=== PATIENT | male | born 1975 | race Caucasian/White ===

== ENCOUNTER 2020-11-30 13:01 | Outpatient (CLI) | payer OTHER, SELFPAY | END 2020-11-30 13:02 | disposition home or self-care (01) | LOC: ANHCOVIDVC 13:01 | PROVIDERS: PCP Family Medicine Adolescent Medicine | DX: Z23 Encounter for immunization (principal) | CPT/HCPCS: 0001A; 91300 ==

== ENCOUNTER 2020-12-21 13:02 | Outpatient (CLI) | payer OTHER, SELFPAY | END 2020-12-21 13:03 | disposition home or self-care (01) | LOC: ANHCOVIDVC 13:02 | PROVIDERS: PCP Family Medicine Adolescent Medicine | DX: Z23 Encounter for immunization (principal) | CPT/HCPCS: 0002A; 91300 ==

== ENCOUNTER 2021-03-25 12:01 | Emergency (ER) | payer SELFPAY ==
[2021-03-25] VITALS (10 sets, daily range): BP systolic 102–153; BP diastolic 73–105; PULSE 69–88; RESP 14–21; O2SAT 94–98
--- NOTE | ~2021-03-25 | CT_ITS ---
EXAMINATION: CTA brain carotid EXAM DATE: 03/25/2021 16:18 INDICATION: Left-sided paresthesia, hemiparesis. TECHNIQUE: Spiral CTA of the carotid arteries was performed with intravenous injection 100 cc of Om nipaque 350. Axial, coronal, sagittal reformatted images reviewed. Additional reformatted images cre ated on dedicated 3-D workstation. NASCET comparable standard used to assess the degree of arterial stenosis. Spiral CT angiogram cerebral arteries performed with the same intravenous injection of con trast. Source images of the brain CTA transferred to dedicated workstation for 3-D rotational image c reation. Coronal, sagittal maximum intensity pixel images also reviewed. The dose-length product (D LP) for this examination was 1222.40 mGy-cm. The exposure was tailored according to patient size, a nd iterative reconstruction (ASIR) was used as additional dose reduction technique. Correlation is ma de to noncontrast head CT. FINDINGS: There is no carotid bulb arterial sclerosis or stenosis. The vertebral arteries are codomin ant. Fenestrated basilar artery, congenital variant. There is no carotid or vertebral basilar arteri al dissection or fibromuscular dysplasia. There are no cerebral artery aneurysms. There is symmetric cerebral artery arborization. The sagittal, transverse and sigmoid sinuses enhance normally, no venou s sinus thrombosis. Internal cerebral veins also enhance normally. Incidental Findings: There is moderate amount of frothy appearing left maxillary sinus fluid, trace o n the right. Mild to moderate ethmoid and maxillary mucoperiosteal thickening. IMPRESSION: 1. No acute carotid or intracranial findings. 2. Bilateral carotid bulb 0% stenosis. 3. Sinus opacity. Reviewed, dictated and finalized at location B.
--- NOTE | ~2021-03-25 | CT_ITS ---
EXAMINATION: CT brain wo con DATE: 03/25/2021 13:24 INDICATION: Left-sided numbness, confusion and dizziness TECHNIQUE: Computed tomography (CT) of the head was performed without intravenous contrast. Sagittal and coronal reconstructions were performed. The mA was adjusted according to patient size. Iterative reconstruction technique was employed. The dose-length product was 605.33 mGy-cm. COMPARISON: head CT dated 10/29/14 FINDINGS: No acute intracranial hemorrhage, acute infarction or abnormal extra axial fluid collection. Ventricl es are normal and symmetric. No mass/mass effect. Moderate mucosal thickening throughout the bilatera l ethmoid and right maxillary and sphenoid sinuses and dependently layering mucus in the left maxilla ry sinus could be seen with acute sinusitis. The orbits and mastoid air cells are normal. IMPRESSION: 1. Normal brain. No acute intracranial process. 2. Sinus disease. Reviewed, dictated and finalized at location A.
--- NOTE | ~2021-03-25 | XR_ITS ---
EXAMINATION: XR chest 1V portable EXAM DATE: 03/25/2021 12:46 INDICATION: Left-sided weakness. TECHNIQUE: Portable AP frontal chest x-ray was obtained. Comparison is made to prior examination from 09/12/2007. FINDINGS: The lungs are clear. There are no pleural effusions. The cardiomediastinal silhouette is within normal limits. There is no pneumothorax suspected. The bones and soft tissues are unremarkab le. IMPRESSION: No acute cardiopulmonary findings. Reviewed, dictated and finalized at location B.
--- NOTE | ~2021-03-25 | MR_ITS ---
EXAMINATION: MR brain/brain stem wo/w con DATE: 03/26/2021 14:54 INDICATION: Left-sided numbness TECHNIQUE: Magnetic resonance imaging (MRI) of the brain and brainstem was performed without and with 20 mL Multihance intravenous contrast. Sequences included sagittal and axial T1-weighted SE, axial d iffusion-weighted FS SE, axial T2*-weighted GRE, axial T2-weighted FLAIR, and axial T2-weighted FSE. Postcontrast axial and coronal T1-weighted SE was obtained. Apparent diffusion coefficient (ADC) maps were created. COMPARISON: Head CT and CT angiogram dated 03/25/2021 FINDINGS: There are no areas of restricted diffusion to suggest acute infarction. No intracranial hemorrhage or abnormal intracranial mass lesion. There are no intraparenchymal signal abnormalities seen on the ot her pulse sequences. The ventricles are symmetric and normal in size. There are no abnormal extra-axi al fluid collections. Flow voids are seen in the cerebral arteries on the T2-weighted sequences consi stent with their expected patency. Mild to moderate mucosal thickening throughout the paranasal sinus es with dependently layering mucus in the left maxillary sinus and to lesser degree right sphenoid an d maxillary sinuses. Visualized orbits and soft tissues are unremarkable. There are no areas of abnor mal enhancement on the post contrast images. IMPRESSION: 1. Sinus disease. Otherwise normal brain MR . Reviewed, dictated and finalized at location A.
--- NOTE | 2021-03-25 12:07 | ECG_ITS ---
Measurements Intervals [place] Rate: 78 P: 0 MA: 162 QRS: 43 QRSD: 113 T: 30 QT: 340 QTc: 390 Interpretive Statements SINUS RHYTHM INTRAVENTRICULAR CONDUCTION DELAY BASELINE ARTIFACT- I, II, III, AVR, AVL, AVF, V2-V6 BORDERLINE ECG Electronically Signed On 03-25-2021 15:34:18 CDT by Jasson Worley D.O.
[2021-03-25 12:47] LABS: Glucose Point of Care 171 mg/dl (65-105)
[2021-03-25 12:48] LABS: Basophils Percent Auto 0.5 % (0.2-1.2); Eosinophils Absolute Auto 0.2 K/mm3 (0-0.3); Hemoglobin 17.7 g/dL (14.0-18.0); Immature Granulocyte Absolute 0.02 K/mm3 (0.00-0.031); Immature Granulocyte Percent A 0.3 % (0-0.5); Lymphocytes Absolute Auto 1.74 K/mm3 (0.9-3.2); Lymphocytes Percent Auto 22.1 % (18.3-44.2); Mean Corpuscular Hemoglobin 33.5 pg (26-34); Mean Corpuscular Volume 98.5 fl (80-100); Monocytes Absolute Auto 0.5 K/mm3 (0.1-0.6); Monocytes Percent Auto 5.7 % (2.6-8.5); Neutrophils Absolute Auto 5.5 K/mm3 (1.3-6.7); Neutrophils Percent Auto 69.4 % (45.5-73.1); Platelet Count Result 170 k/mm3 (150-375); Red Blood Count 5.28 M/mm3 (4.6-6.20); Red Cell Distribution Width 12.5 % (11.5-14.5); White Blood Count 7.9 K/mm3 (4.5-10.0)
[2021-03-25 12:57] LABS: Anion Gap 9 mmol/L (8-16); Blood Urea Nitrogen 16 mg/dL (9-20); Calcium 9.8 mg/dL (8.4-10.2); Carbon Dioxide 24 mmol/L (22-30); Chloride 105 mmol/L (98-107); Estimated CRCL calculation 104 ml/min; Estimated Glomerular Filt Rate > 60; Glucose 106 mg/dL (65-110); Potassium 4.4 mmol/L (3.4-5.0); Sodium 138 mmol/L (137-145)
--- NOTE | 2021-03-25 12:59 | ED.NEUROSD ---
HPI - Neuro Symptoms/Deficit General Chief Complaint: Neuro Symptoms/Deficit Stated Complaint: neuro symptoms started 3 days ago Time Seen by Provider: 03/25/21 12:09 History of Present Illness HPI Narrative: Patient is a 45-year-old male who presents ER with left-sided numbness and tingling. Located in the face/chest/arm/leg. Ongoing for 3 days and progressively worsening. Also feels like he has some weakness in the left face and also on his left arm and leg. He reports he is more clumsy due to the numbness in his hand. No falling or walking to one side. No history of CVA. Saw his PCP couple days ago and is scheduled for an outpatient MRI and symptom worsening. Patient reports that he also had some sharp chest pain on sternum that went into his left shoulder. It was very brief. No history of MO. Related Data Home Medications Medication Instructions Recorded Confirmed alprazolam 1 mg PO TID PRN 07/20/19 aspirin 81 mg PO DAILY 03/25/21 buspirone 10 mg PO BID 03/25/21 03/26/21 esomeprazole magnesium [Nexium 20 mg PO DAILY 03/25/21 24HR] trazodone 100 mg PO HS 03/26/21 Allergies Allergy/AdvReac Type Severity Reaction Status Date / Time No Known Allergies Allergy Mild Verified 03/25/21 12:13 Review of Systems Review of Systems: All systems reviewed & are unremarkable except as noted in HPI and below Constitutional: Constitutional: Denies chills, Denies fever(s) and Denies weakness Cardiovascular: Cardiovascular: Reports chest pain, Denies rapid heart rate and Reports radiating jaw, neck or arm pain Respiratory: Respiratory: Denies cough and Denies dyspnea Gastrointestinal: Gastrointestinal: Denies abdominal pain, Denies nausea and Denies vomiting Neurologic: Denies syncope, Denies headache(s), Reports focal weakness and Reports numbness PMFSH Past Medical History Medical History (Updated 03/25/21 @ 18:33 by Alex Greene MD) Anxiety Surgical History Surgical History (Updated 07/20/19 @ 07:27 by Alex Greene MD) History of right knee surgery Social History Social History Gender identity (if verbalized by the patient): Male Exam Narrative: GENERAL: Well-appearing, well-nourished, and in no acute distress. HEAD: Normocephalic, atraumatic. EYES: PERRL and EOMI. ENT: Mucous membranes moist. CHEST: Clear to auscultation. No respiratory distress. HEART: Regular rate and rhythm. Normal peripheral pulses. ABDOMEN: Soft, nontender, nondistended. EXTREMITIES: Normal range of motion. No edema. SKIN: Warm, dry, no rash. NEURO: Slight pronator drift for left upper extremity. Decreased pinprick sensation to left face V1/V2/V3, left upper extremity, and left lower extremity. No facial droop but patient feels weak on the left side. No lower extremity drift. Clear speech. Alert and oriented x3. PSYCH: Normal mood and affect. Course Course Emergency Course: Discussed case with hospitalist. Concern patient may be having stuttering stroke symptoms as symptoms continue to worsen over the last few days. There is no neurology available at the hospital at this time. Patient accepted for transfer to [facility] by Dr. Clinton. Reevaluation(s) Reevaluation #1: [facility] let us know the patient would not be receiving a bed today either due to high volume at their facility. I discussed case with Dr. Olivo who approved MRI from the ER as a hospitalist here also declined admit patient. Patient has no evidence of CVA on MRI or CT brain. There is no evidence of narrowing of the blood vessels. I discussed case with patient's PCP Dr. Pryor. Patient can continue his home aspirin as a precaution. Should follow-up this week. Patient will be discharged home. Date: 03/26/21 Time: 16:34 Vital Signs Vital signs: Vital Signs Pulse Rate 79 03/25/21 12:07 Respiratory Rate 18 03/25/21 12:07 Blood Pressure 153/101 H 03/25/21 12:07 Pulse Oximetry 97 03/25/21 12:07
[2021-03-25 13:00] LABS: INR 0.9; Prothrombin Time 12.2 Seconds (11.1-14.7)
[2021-03-25 13:01] LABS: Partial Thromboplastin Time 25.8 SECONDS (22.3-36.8)
[2021-03-25 13:09] LABS: Troponin I < 0.012 ng/mL (0.000-0.034)
[2021-03-25] MEDS: ALPRAZolam (*CRX) 0.25 MG TABLET 0.5 MG PO (22:05)
--- NOTE | 2021-03-25 23:47 | PC.NURSE ---
called [facility] transfer line. Patient in line for bed in Neurology. They are still at max capacity.
[2021-03-26] VITALS (15 sets, daily range): BP systolic 112–152; BP diastolic 75–99; PULSE 54–92; RESP 10–28; O2SAT 95–99
--- NOTE | 2021-03-26 02:56 | PC.NURSE ---
spoke with dominguez from the transfer center at this time. No beds available.
--- NOTE | 2021-03-26 07:43 | PC.NURSE ---
Assumed care of patient from [place]. Still waiting on bed at [facility]. Pt resting in bed and has ordered breakfast.
--- NOTE | 2021-03-26 08:26 | PC.NURSE ---
[facility] called at stated that they still dont have any beds available. they stated they will call when one becomes available.
[2021-03-26] MEDS: ALPRAZolam (*CRX) 0.25 MG TABLET 1 MG PO ×2 (09:35→15:16)
[2021-03-26] MEDS: ASPIRIN 81 MG CHEWABLE TABLET PO (09:36)
[2021-03-26] MEDS: PANTOPRAZOLE SOD SESQUIHYDRATE 20 MG TAB PO (09:56)
[2021-03-26] MEDS: busPIRone HCL 10 MG TABLET PO (09:56)
[2021-03-26 12:56] LABS: Glucose Point of Care 110 mg/dl (65-105)
--- NOTE | 2021-03-26 16:35 | PC.NURSE ---
[facility] notified that Pt is being admitted at [facility]
== END 2021-03-26 17:02 | disposition home or self-care (01) ==
PROVIDERS: Emergency Medicine; Emergency Provider Emergency Medicine; PCP Family Medicine Adolescent Medicine
DX: R20.0 Anesthesia of skin (principal); F41.9 Anxiety disorder, unspecified; Z79.82 Long term (current) use of aspirin; J32.9 Chronic sinusitis, unspecified; I45.9 Conduction disorder, unspecified
CPT/HCPCS: 36415; 70450; 70496; 70498; 70553; 71045; 80048; 82948; 84484; 85025; 85610; 85730; 93005; 99284; A9270; A9577; Q9967

== ENCOUNTER 2022-10-16 13:04 | Emergency (ER) | payer SELFPAY ==
[2022-10-16] VITALS (20 sets, daily range): BP systolic 124–143; BP diastolic 84–101; PULSE 73–112; RESP 12–22; TEMP 36.9; O2SAT 96–100
--- NOTE | ~2022-10-16 | CT_ITS ---
EXAMINATION: CT cervical spine wo con DATE: 10/16/2022 18:05 INDICATION: Neck pain. Fall. TECHNIQUE: Computed tomography (CT) of the cervical spine was performed without intravenous contrast. Automated exposure control and iterative reconstruction technique were employed. The dose-length pro duct was 516.63 mGy-cm. COMPARISON: CT cervical spine 10/15/2011 FINDINGS: There is 11 degrees levoscoliosis of cervical spine. There is kyphosis of cervical spine. T here is 2 mm retrolisthesis of C5 on C6 and C6 on C7. Vertebral body heights are normal. There is mil dly decreased disc height at C3-C4 and C4-C5 and severely decreased disc height at C5-C6 and C6-C7. T he following disc levels are specifically discussed: C2-C3: There is mild right uncovertebral joint osteoarthritis. There is moderate bilateral facet join t osteoarthritis. There is mild bilateral neural foraminal stenosis. There is no central canal stenos is. C3-C4: There is mild bilateral uncovertebral joint osteoarthritis. There is moderate right and mild l eft facet joint osteoarthritis. There is mild left neural foraminal stenosis. There is no central can al stenosis. C4-C5: There is mild bilateral uncovertebral joint osteoarthritis. There is mild bilateral facet join t osteoarthritis. There is no neural foraminal stenosis. There is mild central canal stenosis. C5-C6: There is severe right and mild left uncovertebral joint osteoarthritis. There is mild bilatera l facet joint osteoarthritis. There is moderate right and mild left neural foraminal stenosis. There is mild central canal stenosis. C6-C7: There is severe bilateral uncovertebral joint osteoarthritis. There is severe right and mild l eft facet joint osteoarthritis. There is moderate bilateral neural foraminal stenosis. There is mild central canal stenosis. C7-T1: There is no uncovertebral joint osteoarthritis. There is severe bilateral facet joint osteoart hritis. There is mild bilateral neural foraminal stenosis. There is no central canal stenosis. IMPRESSION: 1. No fracture. 2. Severe cervical spondylosis. 3. Cervical levoscoliosis. Reviewed, dictated and finalized at location A. ERATIVE MANAGER
--- NOTE | ~2022-10-16 | CT_ITS ---
EXAMINATION: CT brain wo con DATE: 10/16/2022 18:02 INDICATION: Dizziness. Fall. TECHNIQUE: Computed tomography (CT) of the head was performed without intravenous contrast. The mA wa s adjusted according to patient size. Iterative reconstruction technique was employed. The dose-lengt h product was 605.33 mGy-cm. COMPARISON: Head CT 03/25/2021 FINDINGS: There is no intracranial hemorrhage, acute infarction, or abnormal intracranial mass lesion . The ventricles are normal in size. There are old blowout fractures of the medial wall and floor of left orbit. There is mucosal thickening in the paranasal sinuses. The mastoid air cells are normal. IMPRESSION: 1. Normal brain. Reviewed, dictated and finalized at location A. [employer] IMPRESSION: 1. Normal brain.
--- NOTE | 2022-10-16 17:49 | ECG_ITS ---
Measurements Intervals [place] Rate: 86 P: 24 TN: 190 QRS: 24 QRSD: 133 T: 35 QT: 343 QTc: 412 Interpretive Statements SINUS RHYTHM INTRAVENTRICULAR CONDUCTION DELAY [130+ ms QRS DURATION] ABNORMAL ECG COMPARED TO ECG 03/25/2021 12:10:51 NO SIGNIFICANT CHANGES Electronically Signed On 10-17-2022 14:09:12 SPONGE FISHERMAN by Fernie Simmons M.D.
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
[2022-10-16] MEDS: SODIUM CHLORIDE 0.9% IV 1,000 ML 999 ML IV CONT (18:17)
[2022-10-16] MEDS: MECLIZINE HCL 25 MG TABLET PO (18:18)
[2022-10-16] MEDS: ONDANSETRON INJ 4 MG/2 ML VIAL IV PUSH (18:18)
[2022-10-16 18:31] LABS: Basophils Absolute Auto 0.1 K/mm3 (0.0-0.1); Basophils Percent Auto 0.7 % (0.2-1.2); Eosinophils Absolute Auto 0.1 K/mm3 (0-0.3); Eosinophils Percent Auto 1.2 % (0-4.4); Hematocrit 54.2 % (42.0-52.0); Hemoglobin 18.3 g/dL (14.0-18.0); Immature Granulocyte Absolute 0.04 K/mm3 (0.00-0.031); Immature Granulocyte Percent A 0.4 % (0-0.5); Lymphocytes Absolute Auto 1.97 K/mm3 (0.9-3.2); Lymphocytes Percent Auto 22.1 % (18.3-44.2); Mean Corpuscular HGB Conc 33.8 g/dl (32-36); Mean Corpuscular Volume 97.8 fl (80-100); Mean Platelet Volume 10.3 fl (7.4-10.4); Monocytes Absolute Auto 0.6 K/mm3 (0.1-0.6); Neutrophils Absolute Auto 6.1 K/mm3 (1.3-6.7); Neutrophils Percent Auto 68.6 % (45.5-73.1); Platelet Count Result 178 k/mm3 (150-375); Red Blood Count 5.54 M/mm3 (4.6-6.20); Red Cell Distribution Width 12.9 % (11.5-14.5); White Blood Count 8.9 K/mm3 (4.5-10.0)
[2022-10-16 19:13] LABS: Alanine Aminotransferase 74 U/L (6-50); Albumin Level 5.1 g/dL (3.5-5.1); Alkaline Phosphatase 64 U/L (38-126); Anion Gap 10 mmol/L (8-16); Aspartate Amino Transferase 42 U/L (17-59); Bilirubin,Total 0.7 mg/dL (0.2-1.3); Blood Urea Nitrogen 16 mg/dL (9-20); Calcium 9.5 mg/dL (8.4-10.2); Carbon Dioxide 32 mmol/L (22-30); Chloride 97 mmol/L (98-107); Estimated CRCL calculation 82 ml/min; Estimated Glomerular Filt Rate > 60; Glucose 95 mg/dL (65-110); Sodium 139 mmol/L (137-145)
[2022-10-16 19:18] LABS: Potassium 4.2 mmol/L (3.4-5.0)
[2022-10-16 19:24] LABS: Appearance Urine Clear (Clear); Bilirubin Urine 1+ (Negative); Blood Urine Negative (Negative); Color Urine Yellow (Yellow); Glucose Urine UA Negative (Negative); Ketones Urine Trace mg/dL (Negative); Leukocyte Esterase Ur Negative LEU/UL (Negative); Nitrate Urine Negative (Negative); Protein Urine Trace mg/dL (Negative); Specific Grav Ur >= 1.030 (1.001-1.035); Urobilinogen Urine 0.2 mg/dL (<2.0); pH Urine 5.5 (5.0-9.0)
[2022-10-16 19:30] LABS: Mucus Urine Rare /lpf; RBC Urine 0-2 /hpf (0-2); WBC Urine 0-3 /hpf
[2022-10-16 19:31] LABS: Add Urine Microscopic? YES
== END 2022-10-16 22:10 | disposition home or self-care (01) ==
PROVIDERS: Emergency Provider Physician Assistant; PCP Family Medicine Adolescent Medicine
DX: F07.81 Postconcussional syndrome (principal); R42 Dizziness and giddiness; F41.9 Anxiety disorder, unspecified; Z79.82 Long term (current) use of aspirin; F17.210 Nicotine dependence, cigarettes, uncomplicated; M47.812 Spondylosis without myelopathy or radiculopathy, cervical region; I45.9 Conduction disorder, unspecified
CPT/HCPCS: 36415; 70450; 72125; 80053; 81001; 85025; 93005; 96361; 96374; 99284; A9270; J2405; J7030

== ENCOUNTER 2024-01-28 11:27 | Emergency (ER) | payer SELFPAY ==
--- NOTE | ~2024-01-28 | XR_ITS ---
EXAMINATION: XR chest 2V DATE: 01/28/2024 12:23 INDICATION: Chest pain. TECHNIQUE: Frontal and lateral views of the chest were obtained. COMPARISON: Chest single view 03/25/2021 FINDINGS: There is no pneumonia, pleural effusion, or pneumothorax. The heart size is normal. There i s a BB-shaped radiopaque foreign body in left chest wall. IMPRESSION: 1. BB-shaped radiopaque foreign body in left chest wall. Reviewed, dictated and finalized at location A.
--- NOTE | 2024-01-28 11:32 | ECG_ITS ---
[facility] [address] Test Date: 2024-01-28 Pat Name: Keenan Montoya Department: Room: Gender: M Lock Tender: : 1975 Requested By: Alex Davalos Order Number: [id number] Jayden MD: Julian Agustin M.D. Measurements Intervals [place] Rate: 84 P: 22 MN: 176 QRS: 49 QRSD: 120 T: 38 QT: 362 QTc: 430 Interpretive Statements SINUS RHYTHM MINOR RV CONDUCTION DELAY OTHERWISE WITHIN NORMAL LIMITS ] No previous ECG available for comparison Electronically Signed On 01-28-2024 14:55:12 CDT by Julian Agustin M.D.
[2024-01-28 11:50] VITALS: BP 124/77; PULSE 83; RESP 16; TEMP 36.9; O2SAT 95
[2024-01-28 12:02] LABS: Basophils Absolute Auto 0.1 K/mm3 (0.0-0.1); Basophils Percent Auto 0.8 % (0.2-1.2); Eosinophils Absolute Auto 0.2 K/mm3 (0-0.3); Eosinophils Percent Auto 3.1 % (0-4.4); Hemoglobin 18.6 g/dL (14.0-18.0); Immature Granulocyte Absolute 0.02 K/mm3 (0.00-0.031); Immature Granulocyte Percent A 0.3 % (0-0.5); Mean Corpuscular HGB Conc 34.4 g/dl (32-36); Mean Corpuscular Hemoglobin 33.5 pg (26-34); Mean Corpuscular Volume 97.3 fl (80-100); Mean Platelet Volume 10.4 fl (7.4-10.4); Monocytes Absolute Auto 0.3 K/mm3 (0.1-0.6); Monocytes Percent Auto 4.4 % (2.6-8.5); Neutrophils Absolute Auto 4.8 K/mm3 (1.3-6.7); Neutrophils Percent Auto 65.4 % (45.5-73.1); Platelet Count Result 167 k/mm3 (150-375); Red Blood Count 5.55 M/mm3 (4.6-6.20); Red Cell Distribution Width 12.3 % (11.5-14.5); White Blood Count 7.3 K/mm3 (4.5-10.0)
[2024-01-28 12:13] LABS: Alanine Aminotransferase 35 U/L (6-50); Albumin Level 4.8 g/dL (3.5-5.1); Alkaline Phosphatase 52 U/L (38-126); Anion Gap 6 mmol/L (4-12); Aspartate Amino Transferase 26 U/L (17-59); Bilirubin,Total 0.7 mg/dL (0.2-1.3); Blood Urea Nitrogen 18 mg/dL (9-20); Calcium 9.7 mg/dL (8.4-10.2); Carbon Dioxide 29 mmol/L (22-30); Chloride 102 mmol/L (98-107); Estimated CRCL calculation 90 ml/min; Estimated Glomerular Filt Rate > 60; Glucose 136 mg/dL (65-110); Lipase 74 U/L (23-300); Sodium 137 mmol/L (137-145)
[2024-01-28 12:14] LABS: Prothrombin Time 13.7 Seconds (11.1-14.7)
[2024-01-28 12:15] LABS: Partial Thromboplastin Time 27.3 Seconds (22.3-36.8)
[2024-01-28 12:25] LABS: Troponin I < 0.012 ng/mL (0.000-0.034)
[2024-01-28 13:20] VITALS: PULSE 74; O2SAT 99
[2024-01-28] MEDS: ASPIRIN 81 MG CHEWABLE TABLET 324 MG PO (13:24)
[2024-01-28 13:25] VITALS: BP 146/103; PULSE 77; RESP 19; O2SAT 97
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
[2024-01-28] MEDS: KETOROLAC 30 MG/ML VIAL (*BKC) IV PUSH (14:15)
[2024-01-28] MEDS: SODIUM CHLORIDE 0.9% IV 1,000 ML 999 ML IV CONT (14:16)
--- NOTE | 2024-01-28 14:31 | ECG_ITS ---
[facility] [address] Test Date: 2024-01-28 Pat Name: Keenan Montoya Department: Room: Gender: M Medical Information Officer: : 1975 Requested By: Alex Davalos Order Number: [id number] Jayden MD: Julian Agustin M.D. Measurements Intervals [place] Rate: 63 P: 19 MA: 214 QRS: 58 QRSD: 121 T: 43 QT: 379 QTc: 390 Interpretive Statements SINUS RHYTHM WITH FIRST DEGREE AV BLOCK POSSIBLE RIGHT VENTRICULAR CONDUCTION DELAY [RSR (QR) IN V1/V2] BORDERLINE ECG Compared to ECG 01/28/2024 11:45:47 First degree AV block now present Electronically Signed On 01-28-2024 15:02:29 CDT by Julian Agustin M.D.
[2024-01-28 14:37] LABS: Lipase 97 U/L (23-300)
[2024-01-28 14:51] LABS: Troponin I < 0.012 ng/mL (0.000-0.034)
== END 2024-01-28 15:44 | disposition home or self-care (01) ==
PROVIDERS: Emergency Provider Emergency Medicine; PCP Family Medicine Adolescent Medicine
DX: K21.9 Gastro-esophageal reflux disease without esophagitis (principal); M94.0 Chondrocostal junction syndrome [Tietze]; Z79.82 Long term (current) use of aspirin; Z87.891 Personal history of nicotine dependence
CPT/HCPCS: 36415; 71046; 80053; 83690; 84484; 85025; 85610; 85730; 93005; 96361; 96374; 99284; A9270; J1885; J7030